=== PATIENT | female | born 1955 | race Caucasian/White ===

== ENCOUNTER 2020-07-05 07:50 | Day surgery (SDC) | payer MEDICARE ==
[2020-07-05] MEDS ORDERED: Midazolam 1 MG/ML 2 ML SDV ONE (08:26)
[2020-07-05] MEDS ORDERED: fentaNYL 100 MCG/2 ML SDV ONE (08:26)
[2020-07-05] MEDS ORDERED: Propofol 200 MG/20 ML SDV ONE (08:26)
[2020-07-05] MEDS ORDERED: Dextrose 5%-Lactated Ringers 1,000 ML IV SCH (08:30)
--- NOTE | 2020-07-09 15:31 | OR ---
DATE OF PROCEDURE: 07/05/2020 SURGEON: Sergei Soler MD PREOPERATIVE DIAGNOSIS: Family history of colon carcinoma. POSTOPERATIVE DIAGNOSES: 1. Family history of colon carcinoma with no polyps identified on today's exam. 2. Limited left colonic diverticulosis. OPERATIVE PROCEDURE: Flexible colonoscopy. ANESTHESIA: IV sedation. INDICATION FOR PROCEDURE: This is a 65-year-old female presenting for a screening colonoscopy. She does have a family history of her mother having colon carcinoma, so she is on a 5-year cycle for colonoscopies. Plan is to proceed with colonoscopy with biopsies and/or polypectomy as indicated. Potential risks including bleeding and perforation were discussed, and the patient wishes to proceed. DETAILS OF PROCEDURE: The patient was taken to the operating room and placed in a left lateral decubitus position. IV sedation was administered after which the initial digital rectal exam was performed and was unremarkable. Colonoscope was then passed into the rectum with retroflexion revealing uncomplicated hemorrhoidal columns. Scope was eventually passed to the level of the cecum. Prep was fairly good with only a small amount of liquid stool present. The patient had some scattered left colonic diverticulosis, which was otherwise uncomplicated. Otherwise, no areas of colitis. No polyps or other signs of neoplasia were seen throughout the exam. The scope was then withdrawn, the above findings reconfirmed, and the procedure was then concluded. The patient was taken to the recovery room in satisfactory condition. Given the patient's family history of colon carcinoma, followup colonoscopy should be undertaken in 5 years. Sergei Soler MD /[id number]
== END 2020-07-05 11:45 | disposition home or self-care (01) ==
LOC: JP.SDS 07:50
PROVIDERS: ATTEND Surgery
DX: Z12.11 Encounter for screening for malignant neoplasm of colon (principal); K57.30 Diverticulosis of large intestine without perforation or abscess without bleeding; G47.33 Obstructive sleep apnea (adult) (pediatric); Z80.0 Family history of malignant neoplasm of digestive organs
CPT/HCPCS: G0105; J2250; J2704; J3010; J7121

== ENCOUNTER 2025-09-07 06:51 | Day surgery (SDC) | payer MEDICARE ==
[2025-09-07] MEDS ORDERED: fentaNYL 100 MCG/2 ML SDV ONE (07:26)
[2025-09-07] MEDS ORDERED: Propofol 200 MG/20 ML SDV ONE (07:26)
[2025-09-07] MEDS: Lactated Ringers 1,000 ML IV SCH (07:41)
== END 2025-09-07 10:15 | disposition home or self-care (01) ==
LOC: JP.SDS 06:51
PROVIDERS: ATTEND Surgery
DX: Z12.11 Encounter for screening for malignant neoplasm of colon (principal); K21.9 Gastro-esophageal reflux disease without esophagitis; Z79.899 Other long term (current) drug therapy
CPT/HCPCS: 00812-QZ; J2704; J3010; J7120